=== PATIENT | male | born 1990 | race Caucasian/White ===

== ENCOUNTER 2021-07-29 12:02 | Emergency (ER) | payer OTHER ==
[~2021-07-29] VITALS: Ht 175.3 cm; Wt 81.4 kg
[2021-07-29 12:15] VITALS: BP 130/82
--- NOTE | 2021-07-29 12:41 | PHYS DOC ---
General Adult EDM: Chief Complaint: KNEE INJURY HPI: HPI: Patient is a 31-year-old male who presents to the emergency department today for left knee pain. Patient reports that he was shoveling snow this morning and slipped on the ice and fell onto his left knee. He is reporting swelling to the knee. He rates his pain 5 out of 10. He denies any decreased range of motion and a decrease sensation to his extremity. Patient is able to bear weight and ambulate. (VIRGILIO PEREZ APRN) Review of Systems: Review of Systems: Constitutional: negative unless reported in HPI Eyes: negative unless reported in HPI HENT: negative unless reported in HPI Respiratory: negative unless reported in HPI Cardiovascular: negative unless reported in HPI GI: negative unless reported in HPI : negative unless reported in HPI Musculoskeletal: negative unless reported in HPI Integument: negative unless reported in HPI Neurologic: negative unless reported in HPI Endocrine: negative unless reported in HPI Lymphatic: negative unless reported in HPI Psychiatric: negative unless reported in HPI (VIRGILIO PEREZ APRN) Allergies: Allergies: Allergies Coded Allergies Type Severity Reaction Last Updated Verified No Known Drug Allergies 07/29/21 No (VIRGILIO PEREZ APRN) Physical Exam: PE: Constitutional: Well developed, well nourished, no acute distress, non-toxic appearance. [] HENT: Normocephalic, atraumatic, bilateral external ears normal, oropharynx moist, no oral exudates, nose normal. [] Eyes: PERRL, EOMI, conjunctiva normal, no discharge. [] Neck: Normal range of motion, no stridor Cardiovascular: Normal peripheral perfusion Lungs & Thorax: Normal work of breathing, no tachypnea Abdomen: Soft and flat Skin: Warm, dry, no erythema, no rash. [] Back: Normal range of motion Extremities: No tenderness, no cyanosis, no clubbing, ROM intact, no edema. Left knee: Mild swelling noted, no crepitus, no obvious deformity, no wounds, range of motion intact, no joint laxity, neuro intact Neurologic: Alert and oriented X 3, normal motor function, normal sensory function, no focal deficits noted. [] Psychologic: Affect normal, judgement normal, mood normal. [] (VIRGILIO PEREZ APRN) EKG: EKG: [] (VIRGILIO PEREZ APRN) Radiology/Procedures: Radiology/Procedures: []PROCEDURE: KNEE LEFT 3V EXAMINATION: Left knee radiograph. VIEWS: 3 COMPARISON: None INDICATION:31 years, Male, knee injury. FINDINGS: Depressed lateral tibial plateau with an ill-defined lucent lines. Adjacent soft tissue swelling. No dislocation or subluxation. Small suprapatellar joint effusion. IMPRESSION: Depressed probably comminuted lateral tibial plateau fracture. Electronically signed by: Marc Mancilla MD (07/29/2021 12:59 PM) [facility] DICTATED AND SIGNED BY: MARC MANCILLA MD DATE: 07/29/21 2568 CC: VIRGILIO PEREZ APRN; KEON YANG ~MTH0 0 (VIRGILIO PEREZ APRN) Heart Score: C/O Chest Pain: N/A Risk Factors: Risk Factors: DM, Current or recent (<one month) smoker, HTN, HLP, family history of CAD, obesity. Risk Scores: Score 0 - 3: 2.5% MACE over next 6 weeks - Discharge Home Score 4 - 6: 20.3% MACE over next 6 weeks - Admit for Clinical Observation Score 7 - 10: 72.7% MACE over next 6 weeks - Early Invasive Strategies (VIRGILIO PEREZ APRN) Course & Med Decision Making: Course & Med Decision Making Pertinent Labs and Imaging studies reviewed. (See chart for details) [] Patient presents to the emergency department for left knee pain after falling on it while shoveling snow. An x-ray was performed that showed tibial plateau fracture Patient's knee placed in knee immobilizer and crutches with crutch training. Patient educated on rice protocol. Advised to take Tylenol and ibuprofen for pain. I discussed with patient all findings and diagnostic testing as well as the need to follow-up with PCP for further evaluation and treatment or return to the ER if any new or worsening symptoms. Strict return precautions were also discussed at length. Patient voiced understanding and agreement with the plan. Patient is hemodynamically stable at the time of disposition. (VIRGILIO PEREZ APRN) Dragon Disclaimer: Dragon Disclaimer: This electronic medical record was generated, in whole or in part, using a voice recognition dictation system. (VIRGILIO PEREZ APRN) Departure Departure: Impression: Primary Impression: Tibial plateau fracture Qualified Codes: S82.142A - Displaced bicondylar fracture of left tibia, initial encounter for closed fracture Disposition: HOME / SELF CARE / HOMELESS Condition: GOOD Referrals: KEON YANG (PCP) Patient Instructions: Crutch Use, [id number], Tibial Fracture, Adult Additional Instructions: You were seen in the emergency department for left knee pain after falling. An x-ray was performed that showed a tibial fracture. Your knee was placed in a knee immobilizer and you were given crutches and crutch training. Please do not bear weight and use the crutches when attempting to ambulate. Use ice packs over the affected areas to help decrease your pain. For the first 24 hours you can apply ice 20 minutes on 20 minutes off for 4 times per day. You may also elevate the affected area to help with the swelling. You can take Tylenol and/or ibuprofen for any pain. Follow-up with your primary care provider within a week. You will need to follow-up with an orthopedic doctor. Please contact orthopedic group at [phone] to set up a follow-up appointment, contact them on Saturday. Return to the emergency department if you develop new injury, worsening of your pain, decreased range of motion, inability to bear weight, decrease sensation in your extremity. Attending Signature Attending Signature I have reviewed the PA/DECK MOLDER's note and plan of care. I was available for consultation as needed during the patient's visit in the emergency department. I agree with the clinical impression, plan, and disposition. (AIDEE CONN DO) VIRGILIO PEREZ APRN Jul 29, 2021 12:41 AIDEE CONN DO Jul 30, 2021 01:23
--- NOTE | 2021-07-29 13:02 | RAD ---
EXAMINATION: Left knee radiograph. VIEWS: 3 COMPARISON: None INDICATION:31 years, Male, knee injury. FINDINGS: Depressed lateral tibial plateau with an ill-defined lucent lines. Adjacent soft tissue swelling. No dislocation or subluxation. Small suprapatellar joint effusion. IMPRESSION: Depressed probably comminuted lateral tibial plateau fracture. Electronically signed by: Nii Mancilla MD (07/29/2021 12:59 PM) [facility]
== END 2021-07-29 13:30 | disposition home or self-care (01) ==
LOC: ER 12:09
DX: S82.142A Displaced bicondylar fracture of left tibia, initial encounter for closed fracture (principal); W00.0XXA Fall on same level due to ice and snow, initial encounter; Y93.H1 Activity, digging, shoveling and raking; Y92.89 Other specified places as the place of occurrence of the external cause; Y99.8 Other external cause status
CPT/HCPCS: 29505; 73562; 99283